=== PATIENT | female | born 1995 | race Caucasian/White ===

== ENCOUNTER 2016-03-08 00:19 | Emergency (ER) | payer OTHER, BC ==
[~2016-03-08] VITALS: Ht 170.2 cm; Wt 61.0 kg
[2016-03-08 00:27] VITALS: TEMP 36.9; Ht 170.2 cm; Wt 61.0 kg
[2016-03-08] MEDS ORDERED: ONDANSETRON INJ 2 MG/ML 2 ML VIAL IV STA (00:54)
[2016-03-08] MEDS ORDERED: SODIUM CHLORIDE 0.9% 1000ML 1,000 ML IV ONE (01:00)
[2016-03-08] MEDS ORDERED: MoRPHine SULFATE 4 MG/ML 1 ML CARP\\VIAL IV ONE (01:00)
[2016-03-08 01:07] LABS: HEMATOCRIT 36.9 % (37-47); MEAN CELL VOLUME 86.6 fL (80-100); MEAN CORPUSCULAR HEMOGLOBIN 29.8 pg (25-34); MEAN CORPUSCULAR HGB CONC 34.4 g/dl (32-36); MEAN PLATELET VOLUME 10.4 fL (7.4-10.4); PLATELET COUNT 224 K/uL (130-400); RED BLOOD COUNT 4.26 M/uL (4.2-5.4); WHITE BLOOD COUNT 10.32 K/uL (4.8-10.8)
[2016-03-08] MEDS ORDERED: OPTIRAY 320 IV PRN (01:15)
[2016-03-08 01:26] LABS: BUN/CREATININE RATIO 16.8 (10-20); CALCIUM 8.9 mg/dl (8.5-10.1); CREATININE 0.76 mg/dl (0.60-1.20); POTASSIUM 3.7 mmol/L (3.5-5.1)
[2016-03-08 01:28] LABS: ALB/GLOB RATIO 1.1 (0.9-2)
[2016-03-08 01:30] LABS: BASO % 0.1 %; BASO ABS # 0.01 K/uL (0-0.2); COMPLETE YES; EOS % 0.3 %; IG% 0.1 %; LYMPH % 13.4 %; LYMPH ABS # 1.38 K/uL (1.2-3.4); MONO % 1.9 %; NEUT % 84.2 %
[2016-03-08 02:39] LABS: URINE APPEARANCE CLEAR (CLEAR); URINE BILIRUBIN NEG (NEG); URINE COLOR YELLOW; URINE EPITHELIAL CELL AUTO >30 /lpf (0-5); URINE NITRITE POS (NEG); URINE SPECIFIC GRAVITY 1.019 (1.000-1.030); UROBILINOGEN NEG (NEG); ZZUR CULT IF INDIC CLEAN CATCH YES
[2016-03-08 02:43] LABS: MANUAL MICROSCOPIC REQUIRED? NO; REVIEW REQ? NO
[2016-03-08 03:48] VITALS: BP 118/79; PULSE 71; O2SAT 98
--- NOTE | 2016-03-08 07:26 | DIAGNOSTIC IMAGING REPORT ---
ULTRASOUND OF THE PELVIS CLINICAL HISTORY: Left pelvic pain. COMPARISON STUDY: No priors. TECHNIQUE: Real-time, grayscale, and color flow sonography of the pelvis is performed both transabdominally and endovaginally. Images are reviewed in the transverse and longitudinal planes. FINDINGS: Uterus: The uterus is normal in size and echotexture, measuring 7.6 x 3.0 x 5.1 cm. Endometrium: The endometrium is normal in appearance, and the endometrial stripe is normal in thickness measuring up to 0.2 cm. Ovaries: The right ovary is normal in size and morphology, measuring 3.6 x 1.9 x 2.4 cm. The left ovary was not visualized. Ovarian follicles are identified. Normal Doppler waveforms are shown within the right ovary. Pelvis: There is trace free fluid in the cul-de-sac. No concerning adnexal lesion is seen. IMPRESSION: 1. Unremarkable sonographic assessment of the uterus and right ovary. 2. The left ovary was not visualized. 3. There is trace free fluid in the cul-de-sac, likely within physiologic limits. Electronically signed by: Dameon Grimes M.D. 03/08/2016 7:25 AM Dictated Date/Time: 03/08/2016 7:23 AM
--- NOTE | 2016-03-08 07:30 | DIAGNOSTIC IMAGING REPORT ---
CT SCAN OF THE ABDOMEN AND PELVIS WITH IV CONTRAST CLINICAL HISTORY: Left pelvic pain. COMPARISON STUDY: Pelvic ultrasound dated 03/08/2016. TECHNIQUE: Following the IV administration of 92 cc of Optiray 320, CT scan of the abdomen and pelvis is performed from the lung bases to the proximal femora. Images are reviewed in the axial, sagittal, and coronal planes. IV contrast was administered without complication. Automated dose control exposure was utilized. CT DOSE: 285.98 mGy.cm FINDINGS: Lung bases: The heart is normal in size and without pericardial effusion. The lung bases are clear. Liver: The contrast-enhanced liver is normal in size, contour, and attenuation. Minimal fatty infiltration is seen adjacent to the falciform ligament. There is no intrahepatic biliary ductal dilatation. The hepatic veins and portal veins are patent. Gallbladder: Unremarkable. Spleen: Normal in size and attenuation. Pancreas: Unremarkable. Adrenal glands: Unremarkable. Kidneys: The contrast enhanced kidneys are normal in size and without hydronephrosis. The kidneys enhance symmetrically. Abdominal vasculature: The abdominal aorta is normal in course and caliber. Bowel: The small bowel and colon are normal in course and caliber. Moderate colonic fecal retention is observed. The appendix is well-visualized and normal. Peritoneum: There is no intraperitoneal free air or abdominal ascites. There is a tiny fat-containing umbilical hernia. Lymphadenopathy: None. Pelvic viscera: The bladder, uterus, and adnexa are normal as visualized. There is trace free fluid in the cul-de-sac. A contraceptive ring is noted in the vagina. There are bilateral ovarian follicles. Skeletal structures: No lytic or blastic lesions are seen. IMPRESSION: 1. There are no acute infectious or inflammatory findings in the abdomen or pelvis. 2. There is trace and likely physiologic free fluid in the cul-de-sac. Electronically signed by: Dameon Grimes M.D. 03/08/2016 7:28 AM Dictated Date/Time: 03/08/2016 7:25 AM
--- NOTE | 2016-03-09 04:18 | EMERGENCY ROOM VISIT NOTE ---
History First contact with patient: 00:33 Chief Complaint: ABDOMINAL PAIN Stated Complaint: ABDOMINAL PAIN Nursing Triage Summary: patient states around 2200 on 03/07 she felt a popping sensation in her left lower abdomen. pain worsens with movement . History of Present Illness The patient is a 20 year old female who presents to the Emergency Room with complaints of left lower quadrant abdominal pain for about the past 3 hours. 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 She returned home she felt a pop sensation in her left lower abdomen as well as immediate and severe pain. The patient states the pain lasted for 5-10 minutes, before improving. The patient got a shower, and states that her symptoms return, prompting her to come to the emergency department. The patient states that she is not as her last menstrual period ended about 5 days ago. She has not had fever or chills. No chest pain, chest tightness, or shortness of breath. She does not have symptoms like this in the past. She is without vaginal drainage, discharge, or bleeding. She rates her current discomfort a 7/10. Review of Systems More than 10 systems were reviewed and otherwise negative with the exception of history of present illness. Past Medical/Surgical History No chronic medical disease. No history of abdominal surgery. Family History No pertinent family history Social History Smoking Status: Current Some Day Smoker Occupation Status: [employer] student Current/Historical Medications No Active Prescriptions or Reported Meds Allergies Coded Allergies: No Known Allergies (Unverified , 11/02/04) Physical Exam Vital Signs Date Time Temp Pulse Resp B/P Pulse Ox O2 Delivery O2 Flow Rate FiO2 03/08/16 03:48 71 20 118/79 98 Room Air 03/08/16 01:56 95 20 124/97 98 Room Air 03/08/16 00:27 36.9 98 20 126/82 99 Room Air Pain Rating (0-10): 3.0 Physical Exam VITALS: Vitals are noted on the nurse's note and reviewed by myself. Vital signs stable. GENERAL: Well-developed, well-nourished, , white female who appears mildly uncomfortable. Patient is cooperative with the examination. HEAD: Normocephalic atraumatic. NECK: Supple without nuchal rigidity. No lymphadenopathy. No thyromegaly. Cervical spine is nontender. HEART: Regular rate and rhythm without murmurs gallops or rubs. LUNGS: Clear to auscultation bilaterally without wheezes, rales or rhonchi. No retractions or accessory muscle use. ABDOMEN: Positive normal bowel sounds x 4. Soft with positive left lower quadrant tenderness on palpation. There is also mild tenderness on palpation. No rebound or guarding. No CVA tenderness. MUSCULOSKELETAL: No muscle atrophy, erythema, or edema noted. Full range of motion without joint tenderness in all extremities. Medical Decision & Procedures ER Provider Diagnostic Interpretation: ULTRASOUND OF THE PELVIS CLINICAL HISTORY: Left pelvic pain. COMPARISON STUDY: No priors. TECHNIQUE: Real-time, grayscale, and color flow sonography of the pelvis is performed both transabdominally and endovaginally. Images are reviewed in the transverse and longitudinal planes. FINDINGS: Uterus: The uterus is normal in size and echotexture, measuring 7.6 x 3.0 x 5.1 cm. Endometrium: The endometrium is normal in appearance, and the endometrial stripe is normal in thickness measuring up to 0.2 cm. Ovaries: The right ovary is normal in size and morphology, measuring 3.6 x 1.9 x 2.4 cm. The left ovary was not visualized. Ovarian follicles are identified. Normal Doppler waveforms are shown within the right ovary. Pelvis: There is trace free fluid in the cul-de-sac. No concerning adnexal lesion is seen. IMPRESSION: 1. Unremarkable sonographic assessment of the uterus and right ovary. 2. The left ovary was not visualized. 3. There is trace free fluid in the cul-de-sac, likely within physiologic limits. CT SCAN OF THE ABDOMEN AND PELVIS WITH IV CONTRAST CLINICAL HISTORY: Left pelvic pain. COMPARISON STUDY: Pelvic ultrasound dated 03/08/2016. TECHNIQUE: Following the IV administration of 92 cc of Optiray 320, CT scan of the abdomen and pelvis is performed from the lung bases to the proximal femora. Images are reviewed in the axial, sagittal, and coronal planes. IV contrast was administered without complication. Automated dose control exposure was utilized. CT DOSE: 285.98 mGy.cm FINDINGS: Lung bases: The heart is normal in size and without pericardial effusion. The lung bases are clear. Liver: The contrast-enhanced liver is normal in size, contour, and attenuation. Minimal fatty infiltration is seen adjacent to the falciform ligament. There is no intrahepatic biliary ductal dilatation. The hepatic veins and portal veins are patent. Gallbladder: Unremarkable. Spleen: Normal in size and attenuation. Pancreas: Unremarkable. Adrenal glands: Unremarkable. Kidneys: The contrast enhanced kidneys are normal in size and without hydronephrosis. The kidneys enhance symmetrically. Abdominal vasculature: The abdominal aorta is normal in course and caliber. Bowel: The small bowel and colon are normal in course and caliber. Moderate colonic fecal retention is observed. The appendix is well-visualized and normal. Peritoneum: There is no intraperitoneal free air or abdominal ascites. There is a tiny fat-containing umbilical hernia. Lymphadenopathy: None. Pelvic viscera: The bladder, uterus, and adnexa are normal as visualized. There is trace free fluid in the cul-de-sac. A contraceptive ring is noted in the vagina. There are bilateral ovarian follicles. Skeletal structures: No lytic or blastic lesions are seen. IMPRESSION: 1. There are no acute infectious or inflammatory findings in the abdomen or pelvis. 2. There is trace and likely physiologic free fluid in the cul-de-sac. ULTRASOUND OF THE PELVIS CLINICAL HISTORY: Left pelvic pain. COMPARISON STUDY: No priors. TECHNIQUE: Real-time, grayscale, and color flow sonography of the pelvis is performed both transabdominally and endovaginally. Images are reviewed in the transverse and longitudinal planes. FINDINGS: Uterus: The uterus is normal in size and echotexture, measuring 7.6 x 3.0 x 5.1 cm. Endometrium: The endometrium is normal in appearance, and the endometrial stripe is normal in thickness measuring up to 0.2 cm. Ovaries: The right ovary is normal in size and morphology, measuring 3.6 x 1.9 x 2.4 cm. The left ovary was not visualized. Ovarian follicles are identified. Normal Doppler waveforms are shown within the right ovary. Pelvis: There is trace free fluid in the cul-de-sac. No concerning adnexal lesion is seen. IMPRESSION: 1. Unremarkable sonographic assessment of the uterus and right ovary. 2. The left ovary was not visualized. 3. There is trace free fluid in the cul-de-sac, likely within physiologic limits. Laboratory Results 03/08/16 00:45 Red Blood Count 4.26, Mean Corpuscular Volume 86.6, Mean Corpuscular Hemoglobin 29.8, Mean Corpuscular Hemoglobin Concent 34.4, Mean Platelet Volume 10.4, Neutrophils (%) (Auto) 84.2, Lymphocytes (%) (Auto) 13.4, Monocytes (%) (Auto) 1.9, Eosinophils (%) (Auto) 0.3, Basophils (%) (Auto) 0.1, Neutrophils # (Auto) 8.69, Lymphocytes # (Auto) 1.38, Monocytes # (Auto) 0.20, Eosinophils # (Auto) 0.03, Basophils # (Auto) 0.01 03/08/16 00:45 Test 03/08/16 00:45 White Blood Count 10.32 K/uL (4.8-10.8) Red Blood Count 4.26 M/uL (4.2-5.4) Hemoglobin 12.7 g/dL (12.0-16.0) Hematocrit 36.9 % (37-47) Mean Corpuscular Volume 86.6 fL (80-100) Mean Corpuscular Hemoglobin 29.8 pg (25-34) Mean Corpuscular Hemoglobin Concent 34.4 g/dl (32-36) Platelet Count 224 K/uL (130-400) Mean Platelet Volume 10.4 fL (7.4-10.4) Neutrophils (%) (Auto) 84.2 % Lymphocytes (%) (Auto) 13.4 % Monocytes (%) (Auto) 1.9 % Eosinophils (%) (Auto) 0.3 % Basophils (%) (Auto) 0.1 % Neutrophils # (Auto) 8.69 K/uL (1.4-6.5) Lymphocytes # (Auto) 1.38 K/uL (1.2-3.4) Monocytes # (Auto) 0.20 K/uL (0.11-0.59) Eosinophils # (Auto) 0.03 K/uL (0-0.5) Basophils # (Auto) 0.01 K/uL (0-0.2) RDW Standard Deviation 42.0 fL (36.4-46.3) RDW Coefficient of Variation 13.3 % (11.5-14.5) Immature Granulocyte % (Auto) 0.1 % Immature Granulocyte # (Auto) 0.01 K/uL (0.00-0.02) Red Blood Cell Morphology Unremarkable Urine Color YELLOW Urine Appearance CLEAR (CLEAR) Urine pH 6.0 (4.5-7.5) Urine Specific [place] 1.019 (1.000-1.030) Urine Protein NEG (NEG) Urine Glucose (UA) NEG (NEG) Urine Ketones TRACE (NEG) Urine Occult Blood TRACE (NEG) Urine Nitrite POS (NEG) Urine Bilirubin NEG (NEG) Urine Urobilinogen NEG (NEG) Urine Leukocyte Esterase TRACE (NEG) Urine WBC (Auto) 5-10 /hpf (0-5) Urine RBC (Auto) 0-4 /hpf (0-4) Urine Hyaline Casts (Auto) 1-5 /lpf (0-5) Urine Epithelial Cells (Auto) >30 /lpf (0-5) Urine Bacteria (Auto) 4+ (NEG) Urine Test NEG (NEG) Anion Gap 12.0 mmol/L (3-11) Est Creatinine Clear Calc Drug Dose 112.8 ml/min Estimated GFR () 130.0 Estimated GFR (Non- 112.1 BUN/Creatinine Ratio 16.8 (10-20) Calcium Level 8.9 mg/dl (8.5-10.1) Total Bilirubin 0.2 mg/dl (0.2-1) Aspartate Amino Transf (AST/SGOT) 16 U/L (15-37) Alanine Aminotransferase (ALT/SGPT) 19 U/L (12-78) Alkaline Phosphatase 68 U/L (45-117) Total Protein 7.6 gm/dl (6.4-8.2) Albumin 4.0 gm/dl (3.4-5.0) Globulin 3.6 gm/dl (2.5-4.0) Albumin/Globulin Ratio 1.1 (0.9-2) Lipase 141 U/L (73-393) Medications Administered Medications (Trade) Dose Ordered Sig/Jose Route Start Time Stop Time Status Last Admin Dose Admin Sodium Chloride (Nss 1000ml) 1,000 ml @ 999 mls/hr Q1H1M ONCE IV 03/08/16 01:00 03/08/16 02:00 DC 03/08/16 01:09 999 MLS/HR Morphine Sulfate (MoRPHine SULFATE INJ) 4 mg NOW ONCE IV 03/08/16 01:00 03/08/16 01:01 DC 03/08/16 01:08 4 MG Ondansetron HCl (Zofran Inj) 4 mg NOW STAT IV 03/08/16 00:54 03/08/16 00:57 DC 03/08/16 01:05 4 MG ED Course Physical exam and history were performed. Nursing notes and EMR were reviewed. Patient appears to have left lower quadrant abdominal pain after feeling a popping sensation. The patient does have some tenderness in the lower abdomen, but actually on the left. IV access was established and labs were obtained. The patient was hydrated and medicated as above. She was initially sent to ultrasound. The patient's blood work is as above and was reviewed. She does not have a significantly elevated white blood count, anemia, bandemia, or gross electrolyte imbalance. Lipase and transaminases are nondiagnostic. Ultrasound does not show evidence of acute etiology of her symptoms. Because of this and her persisting abdominal discomfort elects for a CT scan. The CT scan is also without significant acute findings. Overall the patient does appear stable for discharge home. Her symptoms may be the result of a ruptured ovarian cyst or possibly a muscular skeletal etiology. She and I did discuss performing a pelvic exam, and this was deferred. Recommend that she follow with her primary care physician for any ongoing or persistent symptoms. She may need a pelvic exam if symptoms continue. The patient was otherwise invited back to the ER with any new, worsening, or concerning symptoms. The chart was completed utilizing [employer] Speech Voice Recognition Software. Grammatical errors, random word insertions, pronoun errors, and incomplete sentences are an occasional consequence of this system due to software limitations, ambient noise, and hardware issues. Any formal questions or concerns about the content, text, or information contained within the body of this dictation should be directly addressed to the provider for clarification. . Medical Decision Differential diagnosis: Etiologies such as appendicitis, diverticulitis, PUD, biliary pathology, UTI, pancreatitis, obstruction, mesenteric ischemia, aortic pathology, infections, inflammatory bowel disease, renal colic, as well as others were entertained. Impression Primary Impression: Left sided abdominal pain Departure Information Dispostion Home / Self-Care Condition GOOD Prescriptions No Active Prescriptions or Reported Meds Forms HOME CARE DOCUMENTATION FORM, IMPORTANT VISIT INFORMATION Patient Instructions My [facility] Additional Instructions You were seen and evaluated today on an emergency basis only. This is not a substitute for, or an effort to provide, complete comprehensive medical care. It is not possible to recognize and treat all injuries or illnesses in a single emergency department visit. For this reason it is recommended that you followup with [facility] next week with any ongoing or persistent symptoms. For baseline pain relief you may alternate ibuprofen and acetaminophen every 4 hours for pain control. Take 600 mg ibuprofen (Advil) and then 4 hours later take 1000 mg acetaminophen (Tylenol). Do not take more than 3000 mg acetaminophen in a single day. You are welcome to return to the emergency department anytime with new, worsening, or concerning symptoms.
--- NOTE | 2016-03-11 13:59 | Pharmacy Progress Note ---
ED Pharmacist Progress Note Date of Service: Mar 11, 2016. Rx called to [facility] per patient's request. Rx = Keflex 500mg PO QID x 7 days, no refills. Auth provider = Dr Marcial
== END 2016-03-08 04:24 | disposition home or self-care (01) ==
LOC: C.EDB 00:20 → C.EDA 04:24
DX: R10.9 Unspecified abdominal pain (principal); F17.200 Nicotine dependence, unspecified, uncomplicated

== ENCOUNTER → 2016-04-04 | Outpatient (CLI) | payer OTHER | END | disposition home or self-care (01) | LOC: C.LAB1850 17:01 | PROVIDERS: ATTEND Obstetrics & Gynecology | DX: N89.8 Other specified noninflammatory disorders of vagina (principal) ==

== ENCOUNTER → 2016-05-01 | Outpatient (CLI) | payer OTHER ==
[2016-05-04 00:50] LABS: CHLAMYDIA TRACH RNA*** NOT DETECTED (NOT DETECTED); GC (NEIS GONORRHOEAE)RNA** NOT DETECTED (NOT DETECTED)
== END | disposition home or self-care (01) ==
LOC: C.LABSPEC 13:28
PROVIDERS: ATTEND Obstetrics & Gynecology
DX: N89.8 Other specified noninflammatory disorders of vagina (principal); K62.5 Hemorrhage of anus and rectum

== ENCOUNTER → 2016-07-02 | Outpatient (CLI) | payer OTHER ==
[2016-07-05 00:53] LABS: CHLAMYDIA TRACH RNA*** NOT DETECTED (NOT DETECTED); GC (NEIS GONORRHOEAE)RNA** NOT DETECTED (NOT DETECTED)
== END | disposition home or self-care (01) ==
LOC: C.LABSPEC 16:21
PROVIDERS: ATTEND Obstetrics & Gynecology
DX: Z11.3 Encounter for screening for infections with a predominantly sexual mode of transmission (principal)

== ENCOUNTER → 2016-07-02 | Outpatient (CLI) | payer OTHER | END | disposition home or self-care (01) | LOC: C.PAPS 08:01 | PROVIDERS: ATTEND Obstetrics & Gynecology | DX: Z01.419 Encounter for gynecological examination (general) (routine) without abnormal findings (principal) ==

== ENCOUNTER → 2016-10-04 | Outpatient (CLI) | payer OTHER | END | disposition home or self-care (01) | LOC: C.LAB1850 15:22 | PROVIDERS: ATTEND Obstetrics & Gynecology | DX: N93.9 Abnormal uterine and vaginal bleeding, unspecified (principal) ==